=== PATIENT | male | born 1965 | race Caucasian/White ===

== ENCOUNTER 2017-01-08 18:47 | Inpatient (IN) ==
--- NOTE | 2017-01-08 19:01 | EKG Report ---
Test Performed on : 01/08/2017 6:50:37 PM Test Reason : cp Blood Pressure : / mmHG Vent. Rate : 067 BPM Atrial Rate : 067 BPM P-R Int : 166 ms QRS Dur : 088 ms QT Int : 398 ms P-R-T Axes : 047 048 044 degrees QTc Int : 420 ms Normal sinus rhythm. with sinus arrhythmia. Possible Left atrial enlargement Borderline ECG No previous ECGs available Unconfirmed Result
[2017-01-08] MEDS ORDERED: ASPIRIN PR ONE (19:13)
[2017-01-08] MEDS ORDERED: NS 1,000 ML IV ONE (19:13)
[2017-01-08] MEDS ORDERED: ZOFRAN IV ONE (19:13)
[2017-01-08] MEDS ORDERED: LOPRESSOR IV ONE (19:21)
[2017-01-08 19:23] LABS: MANUAL DIFF NEEDED? NO
[2017-01-08 19:27] LABS: BASO% 0.2 % (0.0-0.8); EOS# 0.05 X1000 (0.0-0.7); EOS% 0.4 % (0.0-10.0); HEMATOCRIT 44.9 % (42.0-52.0); HEMOGLOBIN 15.5 g/dL (14.0-18.0); IMM GRAN# 0.05 X1000 (0.0-0.04); IMM GRAN% 0.4 % (0.0-0.5); LYMPH# 1.83 X1000 (1.2-3.4); LYMPH% 14.6 % (20.5-51.1); MCH 29.8 PG (27-31); MCHC 34.5 g/dL (33-37); MCV 86.3 FL (81-99); MONO# 0.95 X1000 (0.11-0.59); MONO% 7.6 % (1.7-9.3); NEUT% 76.8 % (42.2-75.2); PLT 268 X1000 (130-400)
[2017-01-08 19:41] LABS: AGAP 13; ALBUMIN 4.2 g/dL (3.5-5.0); ALKALINE PHOSPHATASE 68 U/L (32-122); BUN 15 mg/dL (8-22); CALCIUM 10.5 mg/dL (8.8-10.2); CHLORIDE 98 mmol/L (98-107); COSMO 279; GOT 18 U/L (10-34); GPT 19 U/L (10-44); POTASSIUM 4.3 mmol/L (3.5-5.1); SODIUM 139 mmol/L (136-145); TCO2 28 mmol/L (25-35); TOTAL PROTEIN 8.1 g/dL (6.3-8.3)
--- NOTE | 2017-01-08 20:08 | Diag Imaging Result Doc PS360 ---
EXAM: CHEST-PORTABLE HISTORY: chest TECHNIQUE: Semierect portable AP COMPARISON: 05/29/2010 FINDINGS: The lungs are well expanded. Heart is not enlarged. The vessels are not distended. There are no infiltrates. No pleural effusions identified. IMPRESSION: Negative chest Electronically signed by Rc Orozco 01/08/2017 8:05 PM
--- NOTE | 2017-01-08 21:57 | PROVIDER DOCUMENTATION ---
This chart was entered by Elizabeth Howard Scribe, acting as scribe for Judd Gutierrez DO. HPI-General Adult - General Chief Complaint: Chest Pain Stated Complaint: VOMITING,DEHYDRATED Time Seen by Provider: 01/08/17 18:52 Source: patient Allergies/Adverse Reactions: Patient Allergies Allergy/AdvReac Type Severity Reaction Status Date / Time No Known Allergies Allergy Verified 01/08/17 19:18 Home Medications: Home Medication List Medication Instructions Recorded Confirmed Last Taken Type Metoprolol [Lopressor] 50 mg PO DAILY 01/08/17 01/08/17 01/08/17 15:00 History 50 MG - History of Present Illness -Gen Adult Nature of Presenting Problems: 51 Y/O M present to ER with the complain of vomit this am. pt states that he also have epigastric pain and some chest discomfort and palpitation. Location of Pain/Injury: reports: chest, abdomen (epigastric) Pain Radiation: reports: no radiation Quality of Pain: reports: aching Severity: reports: moderate Onset/Duration: reports: this morning Timing: reports: still present Context/Activities at Onset: reports: none Modifying Factors: improves with: nothing Associated Symptoms: reports: chest pain, vomiting Similar Symptoms Previously?: No Recently seen or treated by another doctor?: No Review of Systems - Adult - REVIEW OF SYSTEMS - ADULT Constitutional: reports: no symptoms reported Eyes: reports: no symptoms reported Ears, Nose, Mouth & Throat: reports: no symptoms reported Cardiovascular: reports: chest pain, palpitations Respiratory: reports: no symptoms reported Gastrointestinal: reports: abdominal pain (epigastric), nausea, vomiting. denies: diarrhea Genitourinary: reports: no symptoms reported Musculoskeletal: reports: no symptoms reported Integumentary: reports: no symptoms reported Neurological: reports: no symptoms reported Psychiatric: reports: no symptoms reported Endocrine: reports: no symptoms reported Hematologic/Lymphatic: reports: no symptoms reported Allergic/Immunologic: reports: no symptoms reported All Other Systems: Reviewed and Negative Past History - Adult - PAST MEDICAL HISTORY-ADULT Review of Records: reports: Old Records Reviewed, Nursing Assessment Review Cardiovascular: reports: HTN Gastrointestinal: reports: GERD - PRIOR SURGERIES/PROCEDURES Surgical/Procedure History: reports: appendectomy, hernia repair - IMMUNIZATION STATUS Childhood Immunizations: See Nurse Assessment Flu Vaccine: See Nurse Assessment Physical Exam-General - PHYSICAL EXAM-ADULT Initial Vital Signs Reviewed: Yes - CONSTITUTIONAL General Appearance: appears well, alert - EYES Eyes: PERRL/EOMI, pink conjunctivae - HEAD, EARS, NOSE, MOUTH & THROAT HENMT: normocephalic/atraumatic, moist mucous membranes, normal ENT inspection - NECK Neck: non-tender, full range of motion, supple - RESPIRATORY Respiratory: chest non-tender, lungs clear, normal breath sounds - CARDIOVASCULAR Cardiovascular: normal peripheral pulses, regular rate, rhythm, no edema - GASTROINTESTINAL (ABDOMEN) Abdominal Exam: normal bowel sounds, soft, tenderness (epigastric) - MUSCULOSKELETAL Back Exam: normal inspection, no CVA tenderness, no vertebral tenderness Extremity: normal range of motion, non-tender, normal gait - SKIN Integumentary: normal color, normal turgor, warm/dry - NEUROLOGIC Neurologic: grossly normal, no motor/sensory deficits - PSYCHIATRIC Psych/Mental Status: normal mood/affect, normal thought content, normal thought process, oriented x 3 Progress - PLAN OF CARE/RESULTS Progress/Plan/Lab Results: Vital Signs - 8 hr 01/08/17 18:56 Pulse Rate 80 Respiratory Rate 20 Blood Pressure 172/104 O2 Sat by Pulse Oximetry 97 Laboratory Results - last 24 hr 01/08/17 01/08/17 01/08/17 19:17 19:17 19:17 WBC 12.50 H RBC 5.20 Hgb 15.5 Hct 44.9 MCV 86.3 MCH 29.8 MCHC 34.5 RDW Std Deviation 13.0 Plt Count 268 MPV 10.0 Immature Gran % (Auto) 0.4 Neut % (Auto) 76.8 H Lymph % (Auto) 14.6 L [place] % (Auto) 7.6 Eos % (Auto) 0.4 Baso % (Auto) 0.2 Immature Gran # (Auto) 0.05 H Neut # (Auto) 9.59 H Lymph # (Auto) 1.83 [place] # (Auto) 0.95 H Eos # (Auto) 0.05 Baso # (Auto) 0.03 Sodium 139 Potassium 4.3 Chloride 98 Carbon Dioxide 28 Anion Gap 13 BUN 15 Creatinine 1.1 Estimated GFR/1.73 m2 > 60 BUN/Creatinine Ratio 14 Glucose 117 H Calculated Osmolality 279 Calcium 10.5 H Total Bilirubin 0.90 AST 18 ALT 19 Alkaline Phosphatase 68 Troponin T < 0.010 Total Protein 8.1 Albumin 4.2 Globulin 4.0 Albumin/Globulin Ratio 1.0 Orders Category Date Time Status CHEST-PORTABLE [RAD] Stat Exams 01/08/17 19:08 Taken CBC WITH DIFF [HEME] Stat Lab 01/08/17 19:17 Completed COMPREHENSIVE METABOLIC PANEL [CHEM] Stat Lab 01/08/17 19:17 Completed PRO B-NATRIURETIC PEPTIDE Stat Lab 01/08/17 19:17 Received TROPONIN T Stat Lab 01/08/17 19:[address] [URINALYSIS] Stat Lab 01/08/17 19:11 Ordered 0.9% Sodium Chloride Inj [Ns] 1,000 ml Med 01/08/17 19:13 Active IV 999 mls/hr Aspirin Med 01/08/17 19:13 Discontinued 300 mg [place] NOW ONE Metoprolol [Lopressor] Med 01/08/17 19:21 Discontinued 5 mg IV NOW ONE Ondansetron [Zofran] Med 01/08/17 19:13 Discontinued 4 mg IV NOW ONE EKG [EKG] Stat Ther 01/08/17 19:00 Draft Spoke with hospitalist and he accepted the admission. Result Diagrams: 01/08/17 19:17 01/08/17 19:17 - EKG 1 Time of EKG reading by physician:: 18:50 EKG Read and Signed by:: Judd Gutierrez EKG Interpretation (*Must complete 3 of following elements*): Abnormal Rate: 67 Rhythm: normal sinus rhythm with sinus arrhythmia Comments: borderline ECG - XRAY 1 XRAY: Bilateral XRAY Study: Chest Impression: Normal XRAY Interpretation: negative exam by radiologist Departure - Departure Date of Disposition Decision: 01/08/17 Time of Disposition Decision: 21:56 DIAGNOSIS: Chest pain Disposition: ADMITTED INPATIENT 09 Certified Medical Emergency: Emergent Condition: Critical Referrals and Follow-Ups: None,PCP [Primary Care Provider] - - Critical Care Note This patient required my direct & personal management of CC.: Yes Attestation - Physician/ BRAD Attestation Patient care was provided by Advanced Practice Provider:: No The physician spent face to face time with patient:: Yes Advanced Practice Provider documentation review:: Supervising physician onsite and consulted in the evaluation and care of this patient. The physician did have a face to face encounter with the patient. This chart was documented by the indicated scribe, (Elizabeth Howard Scribe) and accurately reflects the services I performed and decisions made by me, Judd Gutierrez DO, as attested by the provider's signature.
[2017-01-09] MEDS: ZOFRAN IV PRN ×2 (00:15→09:59)
[2017-01-09] MEDS: TYLENOL PO PRN ×2 (00:26→06:15)
[2017-01-09 05:59] LABS: MANUAL DIFF NEEDED? NO
[2017-01-09 06:14] LABS: BASO% 0.2 % (0.0-0.8); EOS# 0.13 X1000 (0.0-0.7); EOS% 1.1 % (0.0-10.0); HEMATOCRIT 43.4 % (42.0-52.0); HEMOGLOBIN 14.4 g/dL (14.0-18.0); IMM GRAN# 0.04 X1000 (0.0-0.04); IMM GRAN% 0.3 % (0.0-0.5); LYMPH# 3.06 X1000 (1.2-3.4); LYMPH% 25.2 % (20.5-51.1); MCHC 33.2 g/dL (33-37); MCV 87.5 FL (81-99); MONO# 1.31 X1000 (0.11-0.59); MONO% 10.8 % (1.7-9.3); MPV 9.9 FL (7.4-10.4); NEUT% 62.4 % (42.2-75.2); PLT 244 X1000 (130-400); RBC 4.96 XMIL (4.7-6.1)
[2017-01-09 06:33] LABS: AGAP 8; ALBUMIN 3.6 g/dL (3.5-5.0); ALKALINE PHOSPHATASE 58 U/L (32-122); BUN 16 mg/dL (8-22); CALCIUM 9.7 mg/dL (8.8-10.2); CHLORIDE 103 mmol/L (98-107); COSMO 276; GOT 14 U/L (10-34); GPT 16 U/L (10-44); POTASSIUM 3.8 mmol/L (3.5-5.1); SODIUM 138 mmol/L (136-145); TCO2 27 mmol/L (25-35); TOTAL PROTEIN 6.9 g/dL (6.3-8.3)
[2017-01-09] MEDS ORDERED: PROTONIX PO SCH (07:00)
[2017-01-09 07:40] VITALS: BP 145/95
[2017-01-09] MEDS ORDERED: LOPRESSOR PO SCH (09:00)
[2017-01-09] MEDS ORDERED: ASPIRIN PO SCH (09:00)
[2017-01-09] MEDS ORDERED: TORADOL IV ONE (09:34)
--- NOTE | 2017-01-09 15:49 | DISCHARGE SUMMARY ---
ADMISSION DATE: 01/08/2017 DISCHARGE DATE: 01/09/2017 DISCHARGE DIAGNOSES: 1. Headache secondary to stress and chronic cervical pain. 2. Chronic cervical pain. 3. Nausea resolved. 4. Epigastric pain likely stress-induced gastritis. 5. Hypertension improved after restarting home medications. 6. Chest pain resolved. CONSULTATIONS: None. PROCEDURES: None. BRIEF HOSPITAL COURSE: The patient is a 51-year-old male was admitted as noted on the HPI, treated in usual fashion, placed on telemetry, ruled out for an HI. Thankfully had no further complications. His nausea was improved. He was able to drink liquids without much difficulty. Still felt a little nauseated when he ate. DISPOSITION: Certainly would have preferred the patient to stay in the hospital longer for observation however his immediate stress is due to a in the family and he has a to go to this afternoon. Therefore, we will discharge him home. Discussed with him a GI soft diet for the next several days as well as taking his home Dexilant in the morning and getting a prescription for Pepcid to take at night for the next 3-5 days. He will follow up outpatient with primary care of his choice. cc: Gaurav Landaverde MD
--- NOTE | 2017-01-09 19:00 | HISTORY AND PHYSICAL ---
CHIEF COMPLAINT: Nausea, vomiting. HISTORY OF PRESENT ILLNESS: Patient is a 51-year-old male who presented to the emergency department complaining of nausea, vomiting, abdominal pain. States he has had some epigastric pain. Also notes he was having multiple palpitations and was worried that he was having heart issues. He has been under a lot of stress due to a recent in the family. ALLERGIES: No known drug allergies. MEDICATIONS: Metoprolol 50 once a day. PAST MEDICAL HISTORY: Hypertension, reflux, has a history of gastritis but has not been taking Dexilant in several months. SURGICAL HISTORY: Appendectomy and hernia repair. FAMILY HISTORY: Positive for coronary artery disease. SOCIAL HISTORY: Patient lives at home. He is . He does not smoke or drink. REVIEW OF SYSTEMS: Patient notes that he has been having nausea, vomiting, severe epigastric abdominal pain for the past day or so. He thought he had eaten something bad yesterday morning after eating a chicken biscuit. He started having intense vomiting and increased abdominal pain. He started having palpitations and this scared him and that is what brought him to the emergency department. He denies any fevers, chills. Denies any hematemesis, melena, hematochezia. Denies any hemoptysis. Denies dysuria, frequency, urgency. OBJECTIVE: Vital signs reviewed. General: He is awake, alert, oriented. He is in no respiratory distress, very pleasant to talk with. Vital signs: He is afebrile, pulse 80, respiratory 20, BP 172/104 initially upon presentation to the ER, currently 130s systolic, saturations 97% on room air. HEENT: Normocephalic, atraumatic. FLIP. Neck: Supple. No JVD. CV: Regular rate. No murmurs. Chest: Clear. Nonlabored. Abdomen: Soft, mildly tender in the epigastric region. Positive bowel sounds. Nondistended and nontender. Extremities: Moves all extremities. No edema. Neuro: No focal neurological changes. Skin: Warm and dry. No rashes. LABS: WBC is 12, hemoglobin and hematocrit stable at 15 and 44. CMP normal. First set of cardiac enzymes are negative. ASSESSMENT: 1. Chest pain. 2. Nausea, vomiting likely stress-induced gastritis. 3. Epigastric pain. 4. Hypertension. 5. Others. PLAN: Will admit patient to the hospital, rule out [place]. Place him on a proton pump inhibitor. Give him IV fluids, Zofran, Phenergan as needed. Further orders as needed. cc: Gaurav Landaverde MD
== END 2017-01-09 11:00 | disposition home or self-care (01) ==
LOC: P.ED 18:47 → P.MEDSURG 18:47 → OBSVTOIN 22:55
PROVIDERS: ATTEND Family Medicine